=== PATIENT | male | born 1985 | race Caucasian/White ===

== ENCOUNTER 2020-03-11 11:10 | Emergency (ER) | payer SELFPAY ==
[2020-03-11 11:21] VITALS: BP 124/79; PULSE 99; TEMP 98.8; BMI 25.8
== END 2020-03-11 13:41 | disposition home or self-care (01) ==
LOC: JER 11:10
DX: R50.9 Fever, unspecified (principal); M79.10 Myalgia, unspecified site; Z11.59 Encounter for screening for other viral diseases
CPT/HCPCS: 99283-25; C9803; U0003